=== PATIENT | male | born 1980 | race Asian ===

== ENCOUNTER 2022-09-10 20:10 | Emergency (ER) | payer MEDICAID ==
[~2022-09-10] VITALS: Ht 167.6 cm; Wt 63.5 kg
[2022-09-10 20:34] VITALS: BP 134/89
[2022-09-10] MEDS ORDERED: CLIN300 PO (22:50)
== END 2022-09-10 23:07 | disposition home or self-care (01) ==
LOC: ER 20:10
DX: L03.211 Cellulitis of face (principal)
CPT/HCPCS: 99282; A9270